=== PATIENT | male | born 1945 | race Caucasian/White ===

== ENCOUNTER 2017-11-05 07:17 | Day surgery (SDC) | payer OTHER ==
[~2017-11-05] VITALS: Ht 177.8 cm; Wt 88.5 kg
[~2017-11-05 07:17] MED LIST: ASPIR 8181 M1 PO; CALCIUM 600 +1 EA16 PO; CYCLOBENZAPRINE5 MG PO; FLONASE16 G1 BOTH NARES; HUMALOG MI100 UNIT/5 SC; HYDROCODON-ACE1 EAC7 PO; LANTUS 3 M100 UNITS1 SC; LIPITOR40 MG PO; LISINOPRIL40 MG PO; NORVASC5 MG PO; TRIGLIDE160 MG PO; TYLENOL EXTRA500 MG PO; [UNRECOGNIZED DRUG - OTHER] PO
[2017-11-05 07:49] LABS: POINT-OF-CARE METER ID UU14174212
[2017-11-05 08:31] VITALS: BP 174/81
[2017-11-05 12:04] LABS: POINT-OF-CARE METER ID UU13113675
[2017-11-05 13:49] VITALS: BP 170/80
[2017-11-05 15:40] VITALS: BP 150/72
== END 2017-11-05 15:55 | disposition home or self-care (01) ==
LOC: SDC 07:17
PROVIDERS: Neurological Surgery
DX: M51.16 Intervertebral disc disorders with radiculopathy, lumbar region (principal); M48.062 Spinal stenosis, lumbar region with neurogenic claudication; I12.9 Hypertensive chronic kidney disease with stage 1 through stage 4 chronic kidney disease, or unspecified chronic kidney disease; E11.22 Type 2 diabetes mellitus with diabetic chronic kidney disease; N18.3 Chronic kidney disease, stage 3 (moderate); E78.00 Pure hypercholesterolemia, unspecified
CPT/HCPCS: 72020; 76000; 82948; J0131; J0690; J1040; J1100; J1170; J1885; J2250; J2405; J2710; J3010